=== PATIENT | male | born 1945 | race Caucasian/White ===

== ENCOUNTER → 2017-01-20 | Outpatient (CLI) | payer MEDICARE, OTHER ==
[~2017-01-20] MED LIST: ACHD5005 PO; ACTOS; AMLO10TA82 PO; AMLO5TAB2 PO; AMLODIPINE; ASP81CT PO; CATHETER FLUSH 10 ML SYR IV PRN; CEFD300C3 PO; CEPH500C PO; GABA600T PO; GABA600T2 PO; GABAPENTIN; GBPN300C PO; INSU100I10 SQ; INSU100V6 SQ; L THYROXINE; LEVO100V PO; LEVO112T2 PO; LISI40TA PO; LISINOPRIL; LOVA20TA2 PO; LVT.112T PO; METFORMIN; MTF500T PO; PGLT30T PO; PIOG45TA PO; PREVACID; RANI75TA30 PO; REGADENOSON 0.4 MG/5 ML SYR (LEXISCAN) IV ONE; RNT150T PO; TRAM50TA2 PO
[2017-01-20 08:03] VITALS: BP 155/70
--- NOTE | 2017-01-20 14:33 | STRESS TEST ---
DATE OF SERVICE: 01/20/2017 NUCLEAR MYOVIEW REPORT In summary, the patient was injected with 10.51 mCi of technetium-99 Myoview and the resting images were obtained. The patient received a stress dose of 31.7 mCi of technetium-99 Myoview. The resting and stress images were reviewed and compared in the short axis, horizontal long axis, and vertical long axis views. Review of the images showed diaphragmatic attenuation with fixed defect involving the whole inferior wall and inferoseptum. SSS is 7, SDS 1. No significant reversibility was seen. TID value 1.18. On the gated images, the left ventricle appeared to be normal size with normal contractility. Calculated ejection fraction was 71%. CONCLUSION: 1. Diaphragmatic attenuation affecting the quality of the images, fixed defect involving the inferior wall and inferoseptum with no significant ischemia. 2. Normal left ventricular size with normal contractility. Calculated ejection fraction is 71%. Job ID: [id number] DocumentID: [id number] Dictated Date: 01/20/2017 11:49:55 Aircraft Cleaning Supervisor Date: 01/20/2017 13:41:11 Dictated By: CARMELO JAMISON MD
== END ==
LOC: CARD 06:45
PROVIDERS: ATTEND Internal Medicine
DX: I25.10 Atherosclerotic heart disease of native coronary artery without angina pectoris (principal)
CPT/HCPCS: 78452; 93017

== ENCOUNTER 2017-01-28 11:00 | Outpatient (CLI) | payer MEDICARE, OTHER ==
[~2017-01-28 11:00] MED LIST changes: -CATHETER FLUSH 10 ML SYR IV PRN; -REGADENOSON 0.4 MG/5 ML SYR (LEXISCAN) IV ONE
== END 2017-01-28 11:40 | disposition home or self-care (01) ==
LOC: SLEEP 11:00
PROVIDERS: ATTEND Internal Medicine
DX: G47.33 Obstructive sleep apnea (adult) (pediatric) (principal)

== ENCOUNTER 2017-02-17 12:12 | Outpatient (CLI) | payer MEDICARE, OTHER ==
[~2017-02-17] VITALS: Ht 167.6 cm; Wt 63.6 kg
[2017-02-17] MEDS ORDERED: RANI150T11 PO (12:49)
[2017-02-17] MEDS ORDERED: INSU100V31 IJ (12:49)
[2017-02-17] MEDS ORDERED: LOVA20TA2 PO (12:49)
[2017-02-17] MEDS ORDERED: INSU100V6 SQ (12:49)
[2017-02-17] MEDS ORDERED: LISI40TA PO (12:49)
[2017-02-17] MEDS ORDERED: PIOG45TA18 PO (12:49)
[2017-02-17] MEDS ORDERED: LEVO112T55 PO (12:49)
[2017-02-17] MEDS ORDERED: GABA600T2 PO ×2 (12:49)
[2017-02-17] MEDS ORDERED: METF500T4 PO (12:49)
[2017-02-17] MEDS ORDERED: AMLO10TA2 PO (12:49)
[2017-02-17 12:54] VITALS: BP 151/66
== END 2017-02-17 13:20 | disposition home or self-care (01) ==
LOC: PREOP 12:12
PROVIDERS: ATTEND Podiatrist Foot & Ankle Surgery
DX: Z01.818 Encounter for other preprocedural examination (principal); M20.11 Hallux valgus (acquired), right foot
CPT/HCPCS: 87081

== ENCOUNTER 2017-03-01 21:00 | Outpatient (CLI) | payer MEDICARE, OTHER ==
[~2017-03-01 21:00] MED LIST changes: +AMLO10TA2 PO; +INSU100V31 IJ; +LEVO112T55 PO; +METF500T4 PO; +PIOG45TA18 PO; +RANI150T11 PO
[2017-03-03] MEDS ORDERED: CEPH500C PO ×2 (08:46)
[2017-03-03] MEDS ORDERED: HYDR-3812 PO ×2 (08:46)
== END 2017-03-02 06:28 | disposition home or self-care (01) ==
LOC: SLEEP 21:00
PROVIDERS: ATTEND Internal Medicine
DX: G47.33 Obstructive sleep apnea (adult) (pediatric) (principal); G47.10 Hypersomnia, unspecified; I10 Essential (primary) hypertension
CPT/HCPCS: 95811

== ENCOUNTER 2017-03-03 06:00 | Day surgery (SDC) | payer MEDICARE, OTHER ==
[~2017-03-03] VITALS: Ht 167.6 cm; Wt 63.6 kg
[2017-03-03] MEDS: LACTATED RINGERS 1,000 ML IV PRN ×2 (06:49→08:07)
[2017-03-03] MEDS ORDERED: CATHETER FLUSH 10 ML SYR IV PRN (07:00)
[2017-03-03] MEDS ORDERED: ceFAZolin 1 GM/NS 50 ML IVPB IV ONE ×2 (07:00)
[2017-03-03 07:01] VITALS: BP 131/62
[2017-03-03] MEDS ORDERED: DEXAMETHASONE 10 MG/ML (DECADRON) 1 ML VIAL ONE (07:11)
[2017-03-03] MEDS ORDERED: LIDOCAINE 1% INJ 20 ML (XYLOCAINE) VIAL ONE (07:12)
[2017-03-03] MEDS ORDERED: BUPIVACAINE 0.5% 30 ML (SENSORCAINE) VIAL ONE (07:12)
[2017-03-03] MEDS ORDERED: proPOfol 200 MG/20 ML (DIPRIVAN) VIAL IV ONE (07:24)
[2017-03-03] MEDS ORDERED: LACTATED RINGERS 0 ML IV ONE (07:24)
[2017-03-03] MEDS ORDERED: MIDAZOLAM 2 MG/2 ML (VERSED) VIAL ONE (07:24)
[2017-03-03] MEDS ORDERED: ONDANSETRON 4 MG/2 ML (SDV) Z0FRAN ONE (07:24)
[2017-03-03] MEDS ORDERED: ROCURONIUM 50 MG/5 ML (ZEMURON) VIAL IV ONE (07:24)
[2017-03-03] MEDS ORDERED: LIDOCAINE PF 2% 5 ML (XYLOCAINE) VIAL ONE (07:24)
[2017-03-03] MEDS ORDERED: LIDOCAINE JELLY 2% (XYLOCAINE) 5 ML TUBE ONE ×2 (07:24→08:30)
[2017-03-03] MEDS ORDERED: fentaNYL INJECTION 100 MCG/2 ML AMP ONE (07:24)
--- NOTE | 2017-03-03 07:27 | Progress Note-Pre Operative ---
Pre-Operative Progress Note H&P Reviewed The H&P was reviewed, patient examined and no changes noted. Date Seen by Provider: Mar 03, 2017 Time Seen by Provider: 07:27 Date H&P Reviewed: Mar 03, 2017 Time H&P Reviewed: : Pre-Operative Diagnosis: Hallux Rigidus right SHENG LARES DPM Mar 03, 2017 7:27 am
[2017-03-03] MEDS ORDERED: ISOFLURANE (FORANE) 15 ML/15 MIN INHALATION ONE (08:30)
[2017-03-03] MEDS ORDERED: LACTATED RINGERS 1,000 ML IV SCH (08:43)
--- NOTE | 2017-03-03 08:43 | Progress Note-Post Operative ---
Post-Operative Progess Note Surgeon (s)/Dry Box Operator (s) Surgeon SHENG LARES DPM Dry Box Operator: none Pre-Operative Diagnosis Hallux Rigidus right Post-Operative Diagnosis Same plus Hallux Valgus, right Procedure & Operative Findings Date of Procedure 03/03/17 Procedure Performed/Findings Aris Bunionectomy, right Anesthesia Type General Estimated Blood Loss Estimated blood loss (mL): Minimal Specimens/Packing Specimens Removed None SHENG LARES DPM Mar 03, 2017 8:43 am
[2017-03-03] MEDS ORDERED: HYDROcodone/APAP 5 MG/325 MG (LORTAB) TAB PO PRN (08:45)
[2017-03-03] MEDS ORDERED: ONDANSETRON 4 MG/2 ML (SDV) Z0FRAN IVP PRN ×2 (08:45→09:00)
[2017-03-03] MEDS ORDERED: CEPH500C PO ×2 (08:46)
[2017-03-03] MEDS ORDERED: HYDR-3812 PO ×2 (08:46)
[2017-03-03] MEDS ORDERED: morphine INJ 10 MG/ML 1ML (SYR OR VIAL) IVP PRN (09:00)
[2017-03-03] MEDS ORDERED: MEPERIDINE (DEMEROL) INJ 50 MG/ML IVP PRN (09:00)
[2017-03-03 09:35] VITALS: BP 130/67
[2017-03-03 10:05] VITALS: BP 137/74
[2017-03-03 10:35] VITALS: BP 137/75
--- NOTE | 2017-03-03 11:22 | Physical Therapy Progress Note ---
Therapy Progress Note Patient has established crutches and feels comfortable with use. Spouse present and states she feels he has good use and knowledge of crutches. Reeducation with patient and spouse on stair training with "up with the good leg and down with the bad." No skilled PT indicated at this time. KENNEDY DELONG PT Mar 03, 2017 11:22
--- NOTE | 2017-03-03 14:45 | Diagnostic Imaging Report ---
EXAMINATION: Two views of the right foot. INDICATION: Postoperative evaluation. FINDINGS: There is suggestion of osteotomy and wire internal fixation of the proximal phalanx of the right great toe. There is good alignment at the first MTP joint. There is, however, severe joint space narrowing, subchondral sclerosis, and cyst formation, compatible with osteoarthritis. There is suggestion of osteopenia. Prominent vascular calcifications are also seen. 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 Postoperative changes about the first MTP joint in good alignment. Dictated by: Dictated on workstation # [id number]
--- NOTE | 2017-03-03 17:24 | OPERATIVE REPORT ---
DATE OF SERVICE: 03/03/2017 SURGEON: Aide Lares DPM PREOPERATIVE DIAGNOSIS: Hallux rigidus, right. POSTOPERATIVE DIAGNOSES: 1. Hallux rigidus, right. 2. Hallux abductovalgus, right. WOUND CLASS: Clean. ANESTHESIA: General. HEMOSTASIS: Pneumatic thigh tourniquet at 250 mmHg. INDICATIONS: This 71-year-old male presents with complaint of a painful right great toe joint. Conservative therapy has met with unsatisfactory results and the patient is agreeable to surgical intervention after risks and complications were discussed at length. No guarantees were extended to the patient and he is willing to proceed. DESCRIPTION OF PROCEDURE: The patient was brought back to the operating table and placed in secure supine position. Appropriate timeout was performed. A pneumatic thigh tourniquet was placed on the right lower extremity over several layers of padding. The right foot was then prepped and draped in the normal sterile manner. The right foot was then elevated and allowed to exsanguinate, after which the tourniquet was inflated to 250 mmHg. Attention was then directed to the dorsal aspect of the first metatarsophalangeal joint where a 6 cm longitudinal linear incision was created. The incision was deepened in the same plane with great care to identify and retract all vital neurovascular structures. All the necessary blood vessels were cauterized as encountered. The incision was deepened down to the capsular tissue where a longitudinal capsulotomy was performed. A large dorsal spur was identified to the base of the proximal phalanx and head of the first metatarsal, which was resected sharply. Inspection of the first metatarsal head indicated approximately 50% of the articular cartilage remained, especially to the plantar medial aspect of the cartilage. Inspection of the base of the proximal phalanx had similar deficit of articular cartilage. Utilizing a power sagittal saw and rongeur, the dorsal, medial and lateral spurring to the first metatarsal head as well as the base of the proximal phalanx was resected. The area was further contoured and smoothed with a power bur and power rasp. Utilizing a 1 mm drill, fenestration of the articular cartilage deficit was performed to both the head of the first metatarsal as well as the base of the proximal phalanx. The wound was flushed with copious amounts of normal saline. It was then noted that there was a lateral deviation to the hallux and with correction of the alignment of the hallux, there would be less pressure to the lateral aspect of the articular cartilage of the first metatarsophalangeal joint. An thalia procedure was then performed. Subperiosteal dissection was carried out to the base of the proximal phalanx; after which a wedge of bone was resected with a sagittal saw. The base medial and the lateral cortices held intact. Once the gap was closed, there was good alignment of the right hallux. Two missing persons investigator holes were created at the dorsal medial aspect of the osteotomy, after which a 28-gauge monofilament wire was passed through the missing persons investigator hole securing the osteotomy in a closed position. The wound was flushed with copious amounts of normal saline throughout the procedure. Good alignment of the toe was appreciated as well as fixation at this time. There is no crepitation with passive range of motion of the first metatarsophalangeal joint this time. Closure was then performed in layers. Deep closure was performed with 3-0 Vicryl, superficial with 4-0 Vicryl, skin was closed with 4-0 Prolene in a horizontal mattress type stitch. Postoperative injection consisted of 14 mL of 0.5% Marcaine injectable in a local infusion to the surgical site as well as 10 mg dexamethasone into the right first metatarsophalangeal joint. Postoperative dressing consisted of Betadine soaked Adaptic, sterile 4 x 4, sterile Kerlix all secured with a Coban wrap. The patient tolerated the anesthesia and procedure well and was taken to the recovery area with vital signs stable and vascular status intact to all digits of the right foot. He is to follow up in my office in 10 days' period of time or sooner if necessary. He was given a prescription for Keflex as well as Vicodin. Job ID: [id number] DocumentID: [id number] Dictated Date: 03/03/2017 08:52:57 Animal Rehabilitator Date: 03/03/2017 17:23:49 Dictated By: AIDE LARES DPM
== END 2017-03-03 10:55 | disposition home or self-care (01) ==
LOC: SDC 06:00
PROVIDERS: ATTEND Podiatrist Foot & Ankle Surgery
DX: M20.21 Hallux rigidus, right foot (principal); M20.11 Hallux valgus (acquired), right foot; E03.9 Hypothyroidism, unspecified; E11.42 Type 2 diabetes mellitus with diabetic polyneuropathy; I10 Essential (primary) hypertension; E78.5 Hyperlipidemia, unspecified; K21.9 Gastro-esophageal reflux disease without esophagitis; I25.10 Atherosclerotic heart disease of native coronary artery without angina pectoris; Z86.010 Personal history of colon polyps; G47.33 Obstructive sleep apnea (adult) (pediatric); Z79.4 Long term (current) use of insulin; Z79.899 Other long term (current) drug therapy; Z79.82 Long term (current) use of aspirin
CPT/HCPCS: 73620; 82962

== ENCOUNTER 2018-11-06 17:52 | Observation (INO) | payer MEDICARE, OTHER ==
[~2018-11-06] VITALS: Ht 170.2 cm; Wt 65.8 kg
[~2018-11-06 17:52] MED LIST changes: -AMLO10TA2 PO; +AMLO10TA7 PO; +GBPN600T PO; +METF-397 PO; -METF500T4 PO; -PIOG45TA18 PO; +PIOG45TA65 PO
--- NOTE | 2018-11-06 18:16 | ED Fall/Injury ---
General Chief Complaint: Trauma-Non Activation Stated Complaint: FALL/L SIDE PAIN Nursing Triage Note: Pt to ED in wheelchair. Pt reports falling off the second rung of a ladder. Pt reports "blacking out" and not remembering fall. Pt c/o L sided head, L neck, L shoulder and L hip pain. Pt reports L rib pain worsened upon inspiration. Pt reports fall occured around 1330. Source: patient Exam Limitations: no limitations History of Present Illness Date Seen by Provider: Nov 06, 2018 Time Seen by Provider: 18:14 Initial Comments To ER per private vehicle from home with reports of a fall off of a ladder while working on his garage door. He was up on the second rung of the ladder when he "blacked out" falling off landing on his left side. He complains of pain to the left shoulder left wrist, he did hit the back left side of his head, complains of a headache, complains of some midline posterior neck pain, some lateral left chest pain he was able to get himself up and bear weight but does complain of some pain in the left hip as well. He is not on anticoagulation. He's been feeling fine all day today prior to this episode. Location Injury Occurred: home Occurred: just prior to arrival Severity: moderate Injuries/Pain Location: no injury, neck, chest, back Context: fainted Loss of Consciousness: no loss of consciousness Associated Symptoms (Fall): Chest Pain, Headache, Neck Pain Allergies and Home Medications Allergies Coded Allergies: No Known Drug Allergies (Unverified , 02/17/17) Home Medications Amlodipine Besylate 10 Mg Tablet, 10 MG PO DAILY, (Reported) Gabapentin 600 Mg Tablet, 1,200 MG PO AM, (Reported) Gabapentin 600 Mg Tablet, 1,200 MG PO HS, (Reported) Insulin Glargine,Hum.rec.anlog 100 Unit/1 Ml Vial, 7 UNIT SQ HS, (Reported) Insulin Regular, Human 100 Unit/1 Ml Vial, 5 UNIT IJ EVENING MEAL, (Reported) Levothyroxine Sodium 112 Mcg Tablet, 112 MCG PO DAILY, (Reported) Lisinopril 40 Mg Tablet, 40 MG PO DAILY, (Reported) Lovastatin 20 Mg Tablet, 20 MG PO HS, (Reported) Metformin HCl 500 Mg Tablet, 500 MG PO BID, (Reported) Pioglitazone HCl 45 Mg Tablet, 45 MG PO DAILY, (Reported) Ranitidine HCl 150 Mg Tablet, 150 MG PO BID, (Reported) Patient Home Medication List Home Medication List Reviewed: Yes Review of Systems Review of Systems Constitutional: see HPI Eyes: No Symptoms Reported Ears, Nose, Mouth, Throat: no symptoms reported Respiratory: see HPI, other (pleurodynia) Cardiovascular: chest pain (the chest pain is the very lateral left chest, very tender to palpation and worse with deep breathing or movement.) Genitourinary: no symptoms reported Musculoskeletal: see HPI, joint pain, neck pain Skin: no symptoms reported Psychiatric/Neurological: No Symptoms Reported Past Zdayrbv-Xgrakv-Wsaefw Hx Patient Social History Alcohol Use: Occasionally Uses Recreational Drug Use: No Smoking Status: Never a Smoker Recent Foreign Travel: No Contact w/Someone Who Travel: No Recent Infectious Disease Expo: No Recent Hopitalizations: No Immunizations Up To Date Tetanus Booster (TDap): Less than 5yrs Date of Pneumonia Vaccine: Jan 29, 2016 Date of Influenza Vaccine: Feb 04, 2017 Seasonal Allergies Seasonal Allergies: No Past Medical History Surgeries: Yes (HEART CATH/NO INTERVENTIONS, CATARACTS, LT FOOT, BILAT CARPAL TUNNEL) Thyroidectomy Respiratory: No Cardiac: Yes High Cholesterol, Hypertension Neurological: Yes Neuropathy Reproductive Disorders: No Sexually Transmitted Disease: No HIV/AIDS: No Gastrointestinal: Yes Gastroesophageal Reflux, Polyps Musculoskeletal: Yes Arthritis Endocrine: Yes Diabetes, Insulin dep, Hypothyroidsim Loss of Vision: Bilateral Hearing Impairment: Hard of Hearing, Bilateral Hearing Aide Cancer: Yes (POSS THYROID? DIDN'T FOLLOW UP AFTER SURGERY) What Type of Treatment Did You: Surgical Intervention Psychosocial: No Integumentary: No Blood Disorders: No Adverse Reaction/Blood Tranf: No Family Medical History Arthritis 19 MOTHER, Onset:50's - 60 Cardiovascular disease 19 FATHER, Onset:60 years & older Diabetes mellitus 19 MOTHER, Onset:60 years & older G8 BROTHER, Onset:40's - 50 G8 SISTER, Onset:50's - 60 Kidney disease Myocardial infarction 19 FATHER, Onset:60 years & older Thyroid disease G8 SISTER, Onset:30's - 40 No Family History of: AIDS Abdominal aortic aneurysm Micah's disease Alcoholism Alzheimer's disease Aphasia Asthma Cancer of mouth Cataracts Colon cancer Completed stroke Congenital disease Congenital heart disease Coronary thrombosis Cystic fibrosis Deafness or hearing loss Dementia Drug abuse Dysphasia Fibrocystic disease of breast Gastroenteritis Glaucoma Headache disorder Hypercholesterolemia Hypertension Infertility Neoplasm Not obtainable due to adoption Osteoporosis Parkinson's disease Prostate cancer Psychosocial problem Respiratory disorder Seizure disorder Severe allergy Tuberculosis Visual disorder No Pertinent Family Hx Physical Exam Vital Signs Vital Signs - First Documented 11/06/18 17:55 Temp 97.0 Pulse 87 Resp 15 B/P (MAP) 145/77 (99) Pulse Ox 97 O2 Delivery Room Air Capillary Refill : Less Than 3 Seconds Height, Weight, BMI Height: 5'7.00" Weight: 140lbs. 4.0oz. [id number]; 22.6 BMI Method:Stated General Appearance: WD/WN, mild distress HEENT: PERRL/EOMI, normal ENT inspection Neck: non-tender, full range of motion Respiratory: no respiratory distress, no accessory muscle use, other (Left chest wall is very tender to palpation there is no ecchymosis or abrasion) Gastrointestinal: normal bowel sounds, non tender, soft Neurologic/Psychiatric: alert, normal mood/affect Skin: normal color, warm/dry Romana Coma Score Best Eye Response: (4) Open Spontaneously Best Verbal Response: (5) Oriented Best Motor Response: (6) Obeys Commands [place] Total: 15 Progress/Results/Core Measures Results/Orders Lab Results Laboratory Tests Test 11/06/18 18:15 Range/Units White Blood Count 18.0 H 4.3-11.0 10^3/uL Red Blood Count 4.42 4.35-5.85 10^6/uL Hemoglobin 13.5 13.3-17.7 G/DL Hematocrit 40 40-54 % Mean Corpuscular Volume 91 80-99 FL Mean Corpuscular Hemoglobin 31 25-34 PG Mean Corpuscular Hemoglobin Concent 34 32-36 G/DL Red Cell Distribution Width 15.8 H 10.0-14.5 % Platelet Count 320 130-400 10^3/uL Mean Platelet Volume 9.7 7.4-10.4 FL Neutrophils (%) (Auto) 88 H 42-75 % Lymphocytes (%) (Auto) 6 L 12-44 % Monocytes (%) (Auto) 6 0-12 % Eosinophils (%) (Auto) 0 0-10 % Basophils (%) (Auto) 0 0-10 % Neutrophils # (Auto) 15.8 H 1.8-7.8 X 10^3 Lymphocytes # (Auto) 1.1 1.0-4.0 X 10^3 Monocytes # (Auto) 1.1 H 0.0-1.0 X 10^3 Eosinophils # (Auto) 0.0 0.0-0.3 10^3/uL Basophils # (Auto) 0.0 0.0-0.1 10^3/uL Neutrophils % (Manual) 84 % Lymphocytes % (Manual) 5 % Monocytes % (Manual) 6 % Eosinophils % (Manual) 0 % Basophils % (Manual) 0 % Band Neutrophils 5 % Anisocytosis SLIGHT Prothrombin Time 13.7 12.2-14.7 SEC INR Comment 1.0 0.8-1.4 Sodium Level 134 L 135-145 MMOL/L Potassium Level 5.2 H 3.6-5.0 MMOL/L Chloride Level 104 98-107 MMOL/L Carbon Dioxide Level 23 21-32 MMOL/L Anion Gap 7 5-14 MMOL/L Blood Urea Nitrogen 29 H 7-18 MG/DL Creatinine 1.54 H 0.60-1.30 MG/DL Estimat Glomerular Filtration Rate 44 BUN/Creatinine Ratio 19 Glucose Level 210 H 70-105 MG/DL Calcium Level 9.8 8.5-10.1 MG/DL Corrected Calcium 9.7 8.5-10.1 MG/DL Total Bilirubin 0.5 0.1-1.0 MG/DL Aspartate Amino Transf (AST/SGOT) 29 5-34 U/L Alanine Aminotransferase (ALT/SGPT) 25 0-55 U/L Alkaline Phosphatase 90 40-136 U/L Total Protein 6.8 6.4-8.2 GM/DL Albumin 4.1 3.2-4.5 GM/DL My Orders Orders - ALEJO HUYNH APRN Cbc With Automated Diff (11/06/18 18:13) Comprehensive Metabolic Panel (11/06/18 18:13) Protime With Inr (11/06/18 18:13) Ct Head/Cervical Spine Wo (11/06/18 18:13) Ct Chest/Abdomen/Pelvis W (11/06/18 18:13) Wrist, Left, 3 Views Or More (11/06/18 18:13) Shoulder, Left, 3 Views (11/06/18 18:13) Fentanyl Injection (Sublimaze Injection (11/06/18 18:30) Manual Differential (11/06/18 18:15) Lactated Ringers (Lr 1000 Ml Iv Solution (11/06/18 19:00) Iohexol Injection (Omnipaque 350 Mg/Ml 1 (11/06/18 19:00) Received Contrast (Hold Metformin- Contr (11/06/18 19:00) Sodium Chloride Flush (Catheter Flush Sy (11/06/18 19:00) Ns (Ivpb) (Sodium Chloride 0.9% Ivpb Bag (11/06/18 19:00) Fentanyl Injection (Sublimaze Injection (11/06/18 19:30) Medications Given in ED Vital Signs/I&O 11/06/18 11/06/18 17:55 18:29 Temp 97.0 Pulse 87 80 Resp 15 16 B/P (MAP) 145/77 (99) 121/58 (79) Pulse Ox 97 94 O2 Delivery Room Air Room Air Blood Pressure Mean: 99 Departure Communication (Admissions) Time/Spoke to Admitting Phy: 19:[address] White, recommends observation admission, patient begrudgingly agrees Markedly irregular appearance of the scaphoid bone. There is suggestion of lucency through the mid portion of the scaphoid bone, possibly representing a fracture. There is also suggestion of widening of the scapholunate joint, possibly reflecting ligamentous injury. Constellation of findings may be related to chronic degenerative change; however, given history of trauma, acute fracture is not excluded. Sclerotic focus in the scaphoid bone is of indeterminate etiology or clinical significance. This does not have an aggressive appearance and may reflect a benign bone island or sequela of degenerative change. Dictated on workstation # [id number] Dict: 11/06/181900 Trans: 11/06/181907 [id number] Interpreted by: JACINTA BERNARD DO Electronically signed by: NAME: KELSI ANTONY [facility] REC#: [id number] PT STATUS: REG ER : 1945 PHYSICIAN: ALEJO HUYNH APRN ADMIT DATE: 11/06/18/ER Draft Date of Exam:11/06/18 CT CHEST/ABDOMEN/PELVIS W PROCEDURE: CT chest, abdomen, and pelvis with contrast. TECHNIQUE: Multiple contiguous axial images were obtained through the chest, abdomen, and pelvis after the administration of intravenous contrast. Auto Exposure Controls were utilized during the CT exam to meet ALARA standards for radiation dose reduction. INDICATION: Fell, left upper abdomen pain. FINDINGS: The images through the thorax show that there is a displaced fracture of the lateral aspect of the left fourth rib. The fracture fragments are displaced by half the width of the rib shaft. There are also nondisplaced fractures of the lateral aspects of the left fifth and sixth ribs. There is a vague area of increased density in the left lung base. This may be secondary to atelectasis/infiltrate. The possibility that this is related to a pulmonary contusion should also be considered. There is no sign of a pneumothorax on the left. There is mild atelectasis/infiltrate in the right lung base. The right lung is otherwise generally clear. The previous CT chest exam of 08/02/2015 suggested a small spiculated subpleural density along the periphery of the right upper lobe. That finding is difficult to appreciate on this exam. The calcified pleural based nodule in the right lung base seen previously is again evident and essentially no different. The heart size is within normal limits. There are coronary artery calcifications evident. The aorta is not abnormally dilated and there is no sign of a dissection. The pulmonary arteries were not well opacified and consequently difficult to assess for a pulmonary embolus. There is no obvious pulmonary embolus present. There is no mediastinal or hilar adenopathy. The thyroid gland was not well visualized. The images through the abdomen and pelvis show that the liver, spleen, pancreas, adrenals, gallbladder, kidneys, aorta and inferior vena cava are unremarkable for an acute abnormality. There is fatty infiltration of the pancreas. There is a 5.2 cm hiatal hernia. There is diverticulosis of the sigmoid and descending colon but there is no sign of acute diverticulitis. The urinary bladder and prostate gland are grossly unremarkable. The appendix was not well-visualized but there are no indirect signs of acute appendicitis. The bone windows through the pelvis show no sign of a fracture. The reconstructed parasagittal images fail to show any evidence for an acute bony abnormality of the thoracic or lumbar vertebra. There is severe degenerative disc and bony disease at L2-3. IMPRESSION: 1. There is a displaced fracture at the lateral aspect of the left fourth rib and nondisplaced fractures of the left fifth and sixth ribs. The abnormal density of the left lung base may be secondary to atelectasis/infiltrate alone. The possibility that there is a pulmonary contusion in this area should also be considered. There is no pneumothorax identified. 2. There is no acute cardiopulmonary abnormality noted otherwise. 3. There is no acute abnormality of the abdomen and pelvis. 4. These results were discussed with Dr. Alejo Huynh. Dictated on workstation # [id number] Dict: 11/06/181917 Trans: 11/06/181935 [facility] [id number] Interpreted by: RUDY GONZALES MD Electronically signed by: Impression Primary Impression: Left rib fracture Additional Impression: Pulmonary contusion Disposition: ADMITTED INPATIENT Condition: Stable Admissions Decision to Admit Reason: Admit from ER (General) Decision to Admit/Date: Nov 06, 2018 Time/Decision to Admit Time: 19:49 Departure-Patient Inst. Referrals: YANELY STORM DO (PCP/Family) Primary Care Physician ALEJO HUYNH APRN Nov 06, 2018 18:16
--- NOTE | 2018-11-06 18:25 | NUR ---
pt assissted to cart from wheelchair with assist x2. pt placed in gown. Addendum: 11/06/18 at 1831 by CARINA pt informed of approximate wait time for labs.
[2018-11-06 18:27] LABS: BASOPHILS % (AUTO) 0 % (0-10); EOSINOPHILS % (AUTO) 0 % (0-10); HEMATOCRIT 40 % (40-54); HEMOGLOBIN 13.5 G/DL (13.3-17.7); LYMPHOCYTES # (AUTO) 1.1 X 10^3 (1.0-4.0); LYMPHOCYTES % (AUTO) 6 % (12-44); MEAN CORPUSCULAR HEMOGLOBIN 31 PG (25-34); MEAN CORPUSCULAR HGB CONC 34 G/DL (32-36); MEAN CORPUSCULAR VOLUME 91 FL (80-99); MEAN PLATELET VOLUME 9.7 FL (7.4-10.4); MONOCYTES # (AUTO) 1.1 X 10^3 (0.0-1.0); MONOCYTES % (AUTO) 6 % (0-12); NEUTROPHILS # (AUTO) 15.8 X 10^3 (1.8-7.8); NEUTROPHILS % (AUTO) 88 % (42-75); PLATELET COUNT 320 10^3/uL (130-400); RED CELL DISTRIBUTION WIDTH 15.8 % (10.0-14.5)
[2018-11-06] MEDS ORDERED: fentaNYL INJECTION 100 MCG/2 ML AMP IVP ONE ×2 (18:30→19:30)
[2018-11-06 18:37] LABS: PROTHROMBIN TIME PATIENT 13.7 SEC (12.2-14.7)
[2018-11-06 18:45] LABS: ALBUMIN 4.1 GM/DL (3.2-4.5); BILIRUBIN,TOTAL 0.5 MG/DL (0.1-1.0); CALCIUM 9.8 MG/DL (8.5-10.1); CREATININE SERUM 1.54 MG/DL (0.60-1.30); POTASSIUM 5.2 MMOL/L (3.6-5.0); TOTAL PROTEIN 6.8 GM/DL (6.4-8.2)
[2018-11-06 18:54] LABS: BAND NEUTROPHILS 5 %; BASOPHILS % (MANUAL) 0 %; EOSINOPHILS % (MANUAL) 0 %; LYMPHOCYTES % (MANUAL) 5 %; MONOCYTES % (MANUAL) 6 %; NEUTROPHILS % (MANUAL) 84 %
[2018-11-06 18:55] LABS: ANISOCYTOSIS SLIGHT
[2018-11-06] MEDS ORDERED: LACTATED RINGERS 1,000 ML IV SCH ×2 (19:00→21:30)
[2018-11-06] MEDS ORDERED: IOHEXOL 350 MG/ML 100 ML (OMNIPAQUE 350) VIAL IV ONE (19:00)
[2018-11-06] MEDS ORDERED: CATHETER FLUSH 10 ML SYR IV PRN (19:00)
[2018-11-06] MEDS ORDERED: HOLD METFORMIN - RECEIVED CONTRAST 20 ML VIAL IV SCH (19:00)
[2018-11-06] MEDS ORDERED: NS 100 ML (IVPB) BAG IV ONE (19:00)
--- NOTE | 2018-11-06 19:06 | Diagnostic Imaging Report ---
Examination: Left shoulder, 3 views Indication: Left shoulder pain. Comparison: None available. Findings: No fracture or acute osseous abnormality. Alignment is maintained. Humeral head is well-seated in the glenohumeral joint. No evidence of acromioclavicular joint separation. Surgical clips are demonstrated in the inferior neck soft tissues. No radiopaque foreign body. IMPRESSION: No evidence of acute fracture or dislocation. Dictated by: Dictated on workstation # [id number]
--- NOTE | 2018-11-06 19:09 | Diagnostic Imaging Report ---
EXAMINATION: Left wrist, three views. INDICATION: Left wrist pain after fall. COMPARISON: None available. FINDINGS: There is generalized osteopenia of the visualized bones, which limits detailed evaluation. The scaphoid demonstrates a markedly irregular appearance, with lucency noted in the distal aspect. There is a rounded focus of increased sclerosis in the scaphoid bone. There is marked radiocarpal joint space narrowing. There is suggestion of widening of the scapholunate joint. No displaced fracture is appreciated. Vascular calcifications are noted. No radiopaque foreign body. IMPRESSION: Markedly irregular appearance of the scaphoid bone. There is suggestion of lucency through the mid portion of the scaphoid bone, possibly representing a fracture. There is also suggestion of widening of the scapholunate joint, possibly reflecting ligamentous injury. Constellation of findings may be related to chronic degenerative change; however, given history of trauma, acute fracture is not excluded. Sclerotic focus in the scaphoid bone is of indeterminate etiology or clinical significance. This does not have an aggressive appearance and may reflect a benign bone island or sequela of degenerative change. Dictated by: Dictated on workstation # [id number]
--- NOTE | 2018-11-06 19:15 | NUR ---
C-COLLAR REMOVED BY ALIYA RENTERIA
--- NOTE | 2018-11-06 19:20 | Diagnostic Imaging Report ---
PROCEDURE: CT head and CT cervical spine without contrast. TECHNIQUE: Multiple contiguous axial images were obtained through the brain and cervical spine without the use of intravenous contrast. Sagittal and coronal reformations through the cervical spine were then performed. Auto Exposure Controls were utilized during the CT exam to meet ALARA standards for radiation dose reduction. INDICATION: Fell, headache. COMPARISON: There are no prior studies available for comparison. CT OF THE HEAD: There is no mass, shift of the midline, or hemorrhage to suggest an acute intracranial abnormality. There are dense calcifications in the basal ganglia bilaterally and in the dentate nuclei bilaterally. These are nonspecific but felt to be benign. The ventricles are not abnormally dilated. There is mild cortical atrophy present. The degree of atrophy is consistent with the patient's age. The bone windows show no sign of a fracture or of a destructive lesion. The orbits are symmetrical and within normal limits. The sinuses are generally clear. IMPRESSION: 1. There is no evidence for an acute intracranial abnormality. 2. If clinical concern regarding an acute abnormality persists, then MRI would be recommended for further study. 3. The dense calcifications in the basal ganglia and dentate nuclei bilaterally are nonspecific but most likely benign. CT CERVICAL SPINE: The reconstructed sagittal images show degenerative disc and bony disease throughout the cervical spine. There is no evidence for a high-grade central stenosis. However, there does appear to be fairly severe narrowing of the neural foramen on the right at C3-C4 due to bony overgrowth. There is no fracture or acute bony abnormality appreciated. There is no sign of retropharyngeal edema. The thyroid gland was not well visualized. The lung apices are clear. IMPRESSION: 1. There is no evidence for an acute bony abnormality. 2. There is degenerative disc and bony disease throughout the cervical spine, and there does appear to be fairly severe narrowing of the neural foramen on the right at C3-C4. Dictated by: Dictated on workstation # [id number]
--- NOTE | 2018-11-06 19:37 | Diagnostic Imaging Report ---
PROCEDURE: CT chest, abdomen, and pelvis with contrast. TECHNIQUE: Multiple contiguous axial images were obtained through the chest, abdomen, and pelvis after the administration of intravenous contrast. Auto Exposure Controls were utilized during the CT exam to meet ALARA standards for radiation dose reduction. INDICATION: Fell, left upper abdomen pain. FINDINGS: The images through the thorax show that there is a displaced fracture of the lateral aspect of the left fourth rib. The fracture fragments are displaced by half the width of the rib shaft. There are also nondisplaced fractures of the lateral aspects of the left fifth and sixth ribs. There is a vague area of increased density in the left lung base. This may be secondary to atelectasis/infiltrate. The possibility that this is related to a pulmonary contusion should also be considered. There is no sign of a pneumothorax on the left. There is mild atelectasis/infiltrate in the right lung base. The right lung is otherwise generally clear. The previous CT chest exam of 08/02/2015 suggested a small spiculated subpleural density along the periphery of the right upper lobe. That finding is difficult to appreciate on this exam. The calcified pleural based nodule in the right lung base seen previously is again evident and essentially no different. The heart size is within normal limits. There are coronary artery calcifications evident. The aorta is not abnormally dilated and there is no sign of a dissection. The pulmonary arteries were not well opacified and consequently difficult to assess for a pulmonary embolus. There is no obvious pulmonary embolus present. There is no mediastinal or hilar adenopathy. The thyroid gland was not well visualized. The images through the abdomen and pelvis show that the liver, spleen, pancreas, adrenals, gallbladder, kidneys, aorta and inferior vena cava are unremarkable for an acute abnormality. There is fatty infiltration of the pancreas. There is a 5.2 cm hiatal hernia. There is diverticulosis of the sigmoid and descending colon but there is no sign of acute diverticulitis. The urinary bladder and prostate gland are grossly unremarkable. The appendix was not well-visualized but there are no indirect signs of acute appendicitis. The bone windows through the pelvis show no sign of a fracture. The reconstructed parasagittal images fail to show any evidence for an acute bony abnormality of the thoracic or lumbar vertebra. There is severe degenerative disc and bony disease at L2-3. IMPRESSION: 1. There is a displaced fracture at the lateral aspect of the left fourth rib and nondisplaced fractures of the left fifth and sixth ribs. The abnormal density of the left lung base may be secondary to atelectasis/infiltrate alone. The possibility that there is a pulmonary contusion in this area should also be considered. There is no pneumothorax identified. 2. There is no acute cardiopulmonary abnormality noted otherwise. 3. There is no acute abnormality of the abdomen and pelvis. 4. These results were discussed with Gopi Huynh APRN. Dictated by: Dictated on workstation # [id number]
--- NOTE | 2018-11-06 20:10 | NUR ---
DR VAZQUEZ HERE SEEING PATIENT.
--- NOTE | 2018-11-06 20:18 | NUR ---
WAITING ON BED FOR RM [id number]
--- NOTE | 2018-11-06 20:21 | Diagnostic Imaging Report ---
EXAMINATION: Right hand, 2 views. INDICATION: Right hand pain after fall. COMPARISON: None available. FINDINGS: There is generalized osteopenia of the visualized bones, which limits detailed evaluation. No fracture or acute osseous abnormality is identified. There is marked degenerative change of the radiocarpal joint and irregular appearance of the scaphoid bone, likely on the basis of degenerative change. No periosteal reaction is appreciated. Vascular calcifications are noted. Soft tissues are otherwise unremarkable. IMPRESSION: Limited exam. Marked degenerative change of the radiocarpal joint, without evidence of acute fracture or dislocation. Dictated by: Dictated on workstation # [id number]
--- NOTE | 2018-11-06 20:28 | History & Physical-Surgical ---
History of Present Illness History of Present Illness Reason for visit/HPI Pt is a modified Trauma Activation, 73 yo male who fell off ladder. HPI per ED: To ER per private vehicle from home with reports of a fall off of a ladder while working on his garage door. He was up on the second rung of the ladder when he "blacked out" falling off landing on his left side. He complains of pain to the left shoulder left wrist, he did hit the back left side of his head, complains of a headache, complains of some midline posterior neck pain, some lateral left chest pain he was able to get himself up and bear weight but does complain of some pain in the left hip as well. He is not on anticoagulation. He's been feeling fine all day today prior to this episode. Location Injury Occurred: home Occurred: just prior to arrival Severity: moderate Injuries/Pain Location: no injury, neck, chest, back Context: fainted Loss of Consciousness: no loss of consciousness Associated Symptoms (Fall): Chest Pain, Headache, Neck Pain Pt states it hurts to take deep breaths and radiates into his back. Denies SOB. Headache is minimal. Date of Admission Nov 06, 2018 at 19:40 Time Seen by a Provider: 17:59 I consulted on this patient on 11/06/18 20:22 Attending Physician Hiral Vazquez DO Admitting Physician Chester Freed DO Consult Allergies and Home Medications Allergies Coded Allergies: No Known Drug Allergies (Unverified , 02/17/17) Home Medications Amlodipine Besylate 10 Mg Tablet, 10 MG PO DAILY, (Reported) Cephalexin 500 Mg Capsule, 1 CAP PO TID Prescribed by: SHENG LARES on 03/03/17 0846 Gabapentin 600 Mg Tablet, 600 MG PO AM, (Reported) Gabapentin 600 Mg Tablet, 1,200 MG PO HS, (Reported) Hydrocodone Bit/Acetaminophen 1 Each Tablet, 1-2 TAB PO Q4-6HR PRN for PAIN PRN PAIN Prescribed by: SHENG LARES on 03/03/17 0846 Insulin Glargine,Hum.rec.anlog 100 Unit/1 Ml Vial, 7 UNIT SQ HS, (Reported) Insulin Regular, Human 100 Unit/1 Ml Vial, 5 UNIT IJ EVENING MEAL, (Reported) Levothyroxine Sodium 112 Mcg Tablet, 112 MCG PO DAILY, (Reported) Lisinopril 40 Mg Tablet, 40 MG PO DAILY, (Reported) Lovastatin 20 Mg Tablet, 20 MG PO HS, (Reported) Metformin HCl 500 Mg Tablet, 500 MG PO BID, (Reported) Pioglitazone HCl 45 Mg Tablet, 45 MG PO DAILY, (Reported) Ranitidine HCl 150 Mg Tablet, 150 MG PO BID, (Reported) Patient Home Medication List Home Medication List Reviewed: Yes Past Rnwjtbv-Dkhetj-Bfbajl Hx Patient Social History Alcohol Use: Occasionally Uses Recreational Drug Use: No Smoking Status: Never a Smoker Recent Foreign Travel: No Contact w/Someone Who Travel: No Recent Infectious Disease Expo: No Recent Hopitalizations: No Immunizations Up To Date Tetanus Booster (TDap): Less than 5yrs Date of Pneumonia Vaccine: Jan 29, 2016 Date of Influenza Vaccine: Feb 04, 2017 Seasonal Allergies Seasonal Allergies: No Surgeries History of Surgeries: Yes (HEART CATH/NO INTERVENTIONS, CATARACTS, LT FOOT, BI LAT CARPAL TUNNEL) Surgeries: Thyroidectomy Respiratory History of Respiratory Disorde: No Cardiovascular History of Cardiac Disorders: Yes Cardiac Disorders: High Cholesterol, Hypertension Neurological History of Neurological Disord: Yes Neurological Disorders: Neuropathy Reproductive System Hx Reproductive Disorders: No Sexually Transmitted Disease: No HIV/AIDS: No Gastrointestinal History of Gastrointestinal Di: Yes Gastrointestinal Disorders: Gastroesophageal Reflux, Polyps Musculoskeletal History of Musculoskeletal Dis: Yes Musculoskeletal Disorders: Arthritis Endocrine History of Endocrine Disorders: Yes Endocrine Disorders: Diabetes, Insulin dep, Hypothyroidsim HEENT Loss of Vision: Bilateral Hearing Impairment: Hard of Hearing, Bilateral Hearing Aide Cancer History of Cancer: Yes (POSS THYROID? DIDN'T FOLLOW UP AFTER SURGERY) Psychosocial History of Psychiatric Problem: No Integumentary History of Skin or Integumenta: No Blood Transfusions History of Blood Disorders: No Adverse Reaction to a Blood Tr: No Family Medical History Significant Family History: CAD Over 55 Years Old, Diabetes Family Medial History: Arthritis 19 MOTHER, Onset:50's - 60 Cardiovascular disease 19 FATHER, Onset:60 years & older Diabetes mellitus 19 MOTHER, Onset:60 years & older G8 BROTHER, Onset:40's - 50 G8 SISTER, Onset:50's - 60 Kidney disease Myocardial infarction 19 FATHER, Onset:60 years & older Thyroid disease G8 SISTER, Onset:30's - 40 No Family History of: AIDS Abdominal aortic aneurysm Tate's disease Alcoholism Alzheimer's disease Aphasia Asthma Cancer of mouth Cataracts Colon cancer Completed stroke Congenital disease Congenital heart disease Coronary thrombosis Cystic fibrosis Deafness or hearing loss Dementia Drug abuse Dysphasia Fibrocystic disease of breast Gastroenteritis Glaucoma Headache disorder Hypercholesterolemia Hypertension Infertility Neoplasm Not obtainable due to adoption Osteoporosis Parkinson's disease Prostate cancer Psychosocial problem Respiratory disorder Seizure disorder Severe allergy Tuberculosis Visual disorder Review of Systems Constitutional: No chills, No diaphoresis, No weakness EENTM: No blurred vision, No double vision, No mouth pain, No mouth swelling, No epistaxis Respiratory: No cough, No dyspnea on exertion, No hemoptysis Cardiovascular: chest pain; No edema, No palpitations Gastrointestinal: No abdominal pain, No nausea, No vomiting Genitourinary: No dysuria, No frequency, No hematuria Musculoskeletal: back pain, joint pain, joint swelling, muscle stiffness, neck pain Skin: No change in color, No change in hair/nails Psychiatric/Neurological: Denies Anxiety, Denies Depressed, Denies Seizure, Denies Tingling Pt denies any history of abnormal bleeding or bruising Physical Exam Vital Signs Vital Signs - First Documented 11/06/18 17:55 Temp 97.0 Pulse 87 Resp 15 B/P (MAP) 145/77 (99) Pulse Ox 97 O2 Delivery Room Air Capillary Refill : Less Than 3 Seconds Height, Weight, BMI Height: 5'7.00" Weight: 140lbs. 4.0oz. 63.589763hd; 22.6 BMI Method:Stated General Appearance: WD/WN, Mild Distress Eyes: Bilateral Eye PERRL, Bilateral Eye EOMI HEENT: Pharynx Normal, Moist Mucous Membranes; No Pale Conjunctivae (L), No Pale Conjunctivae (R) Neck: Normal Inspection, Supple Respiratory: Chest Non Tender, Lungs Clear, Normal Breath Sounds, No Accessory Muscle Use, No Respiratory Distress Cardiovascular: Regular Rate, Rhythm, No Murmur Gastrointestinal: Normal Bowel Sounds, No Organomegaly, No Pulsatile Mass, Non Tender, Soft Back: No Vertebral Tenderness, CVA Tenderness (L), Decreased Range of Motion Extremity: Normal Capillary Refill, Normal Inspection, Normal Range of Motion, Non Tender, No Calf Tenderness, No Pedal Edema Neurologic/Psychiatric: Alert, Oriented x3, No Motor/Sensory Deficits, Normal Mood/Affect, airplane electrical repairer II-XII Norm as Tested Skin: Normal Color, Warm/Dry Lymphatic: No Adenopathy (neck, axilla or groin) Data Review Labs Laboratory Tests 11/06/18 18:15: White Blood Count 18.0H, Red Blood Count 4.42, Hemoglobin 13.5, Hematocrit 40, Mean Corpuscular Volume 91, Mean Corpuscular Hemoglobin 31, Mean Corpuscular Hemoglobin Concent 34, Red Cell Distribution Width 15.8H, Platelet Count 320, Mean Platelet Volume 9.7, Neutrophils (%) (Auto) 88H, Lymphocytes (%) (Auto) 6L, Monocytes (%) (Auto) 6, Eosinophils (%) (Auto) 0, Basophils (%) (Auto) 0, Neutrophils # (Auto) 15.8H, Lymphocytes # (Auto) 1.1, Monocytes # (Auto) 1.1H, Eosinophils # (Auto) 0.0, Basophils # (Auto) 0.0, Neutrophils % (Manual) 84, Lymphocytes % (Manual) 5, Monocytes % (Manual) 6, Eosinophils % (Manual) 0, Basophils % (Manual) 0, Band Neutrophils 5, Anisocytosis SLIGHT, Prothrombin T mahesh 13.7, INR Comment 1.0, Sodium Level 134L, Potassium Level 5.2H, Chloride Level 104, Carbon Dioxide Level 23, Anion Gap 7, Blood Urea Nitrogen 29H, Creatinine 1.54H, Estimat Glomerular Filtration Rate 44, BUN/Creatinine Ratio 19, Glucose Level 210H, Calcium Level 9.8, Corrected Calcium 9.7, Total Bilirubin 0.5, Aspartate Amino Transf (AST/SGOT) 29, Alanine Aminotransferase (ALT/SGPT) 25, Alkaline Phosphatase 90, Total Protein 6.8, Albumin 4.1 Assessment/Plan Assessment/Plan Admission Diagonsis Trauma - Fall from Ladder Rib fracture Left 4,5,6 Pulmonary Contusion Admission Status: Observation Assessment/Plan Trauma - Fall from Ladder Rib fracture Left 4,5,6 Pulmonary Contusion Plan is to admit for observation with restricted fluids, pain control and anti- emetics if needed. Pt encouraged to take deep breaths and use IS. Will check O2 periodically and place NC if it drops below 92%. If he has any SOB will repeat CXR in am. All questions answered to his and his family's satisfaction. HIRAL VAZQUEZ DO Nov 06, 2018 20:27
--- NOTE | 2018-11-06 20:35 | NUR ---
KELSI ANTONY admitted to room 416-1, with an admitting diagnosis of LEFT PULMONARY CONTUSION, LEFT RIB FRACTURE, on 11/06/18 from ED via WHEELCHAIR, accompanied by FAMILY AND ED STAFF.KELSI ANTONY introduced to surroundings, call light, bed controls, phone, TV, temperature control, lights, meal times, smoking policy, visitor policy, side rail policy, bathrooms and showers. Patient Rights given to patient in the handbook. KELSI ANTONY verbalizes understanding that [facility] is not responsible for the loss or damage to any personal effects or valuables that are kept in the patients posession during their hospitalization. Patient and/or family were informed about the Rapid Response Team and its purpose.
[2018-11-06 20:39] VITALS: BP 149/66
[2018-11-06] MEDS ORDERED: oxyCODONE/APAP 5/325MG (PERCOCET 5) TABLET PO PRN (21:30)
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
[2018-11-06] MEDS: fentaNYL INJECTION 100 MCG/2 ML AMP IV PRN (22:06)
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
--- NOTE | 2018-11-06 22:25 | NUR ---
PATIENT VOMITED COFFEE GROUND LIKE EMESIS. NOTIFIED DR. VAZQUEZ AT 5244. NO NEW ORDERS AT THIS TIME
--- NOTE | 2018-11-06 23:29 | NUR ---
PT VOMITING COFFEE GROUND EMESIS AGAIN, PT FAMILY CONCERNED. THIS NURSE TALKED TO DR. VAZQUEZ AT 5333. DR CESAR MEYER FOR THE NAUSEA/VOMITING.
[2018-11-06] MEDS ORDERED: RT-ALBUTEROL/IPRATROPIUM 3 ML (DUONEB) VIAL INH PRN (23:30)
[2018-11-07] VITALS: BP 126/59
[2018-11-07] MEDS ORDERED: ONDANSETRON 4 MG/2 ML (SDV) Z0FRAN IVP PRN (00:15)
[2018-11-07 04:00] VITALS: BP 137/64
[2018-11-07 05:06] LABS: BASOPHILS % (AUTO) 0 % (0-10); EOSINOPHILS % (AUTO) 0 % (0-10); HEMATOCRIT 36 % (40-54); HEMOGLOBIN 11.9 G/DL (13.3-17.7); LYMPHOCYTES # (AUTO) 1.5 X 10^3 (1.0-4.0); LYMPHOCYTES % (AUTO) 11 % (12-44); MEAN CORPUSCULAR HEMOGLOBIN 30 PG (25-34); MEAN CORPUSCULAR HGB CONC 33 G/DL (32-36); MEAN CORPUSCULAR VOLUME 91 FL (80-99); MONOCYTES # (AUTO) 1.3 X 10^3 (0.0-1.0); MONOCYTES % (AUTO) 10 % (0-12); NEUTROPHILS # (AUTO) 10.2 X 10^3 (1.8-7.8); NEUTROPHILS % (AUTO) 79 % (42-75); PLATELET COUNT 275 10^3/uL (130-400)
[2018-11-07 05:25] LABS: CALCIUM 9.1 MG/DL (8.5-10.1); CREATININE SERUM 1.19 MG/DL (0.60-1.30); POTASSIUM 4.7 MMOL/L (3.6-5.0)
[2018-11-07] MEDS: fentaNYL INJECTION 100 MCG/2 ML AMP IV PRN (07:49)
[2018-11-07 08:00] VITALS: BP 168/73
[2018-11-07] MEDS ORDERED: RT-ALBUTEROL/IPRATROPIUM 3 ML (DUONEB) VIAL INH SCH (08:00)
[2018-11-07] MEDS ORDERED: DOCUSATE SODIUM 100 MG (COLACE) CAP PO SCH (09:00)
--- NOTE | 2018-11-07 09:35 | Diagnostic Imaging Report ---
Indication: Fall. Findings: The heart size is normal. There is some left basilar atelectasis and/or pneumonitis and small left pleural effusion. There is no pneumothorax. The mediastinum is unremarkable. Impression: Left basilar atelectasis and/or pneumonitis and small left pleural effusion. Dictated by: Dictated on workstation # [id number]
--- NOTE | 2018-11-07 10:25 | Progress Note - Surgery ---
Subjective Time Seen by a Provider: 09:01 Subjective/Events-last exam Pt seen and examined, events of last night noted (nurse reported possible coffee ground emesis). Pt is finally not nauseous, is eating a breakfast burrito his daughter brought. Denies trouble breathing, but it does hurt to take a deep breath. Review of Systems General: No Chills, No Night Sweats Pulmonary: No Dyspnea, No Cough Gastrointestinal: Nausea, Vomiting Objective Exam Vital Signs Date Time Temp Pulse Resp B/P (MAP) Pulse Ox O2 Delivery O2 Flow Rate FiO2 11/07/18 08:00 98.1 108 18 168/73 (104) 92 Room Air 11/07/18 08:00 93 Room Air 11/07/18 07:40 94 Room Air 11/07/18 04:00 99.0 99 16 137/64 (88) 94 Room Air 11/07/18 02:33 93 Room Air 11/07/18 01:00 81 11/07/18 00:00 97.0 83 18 126/59 (81) 90 Room Air 11/06/18 22:54 85 11/06/18 22:50 93 Room Air 11/06/18 22:50 84 93 21 11/06/18 20:50 Room Air 11/06/18 20:39 97.2 88 22 149/66 94 Room Air 11/06/18 20:16 97.9 90 16 146/75 (98) 96 Room Air 11/06/18 18:29 80 16 121/58 (79) 94 Room Air 11/06/18 17:55 97.0 87 15 145/77 (99) 97 Room Air I & O 11/07/18 07:00 Intake Total 600 ml Output Total 150 ml Balance 450 ml Capillary Refill : NONELess Than 3 Seconds General Appearance: No Apparent Distress, WD/WN HEENT: Pharynx Normal, Moist Mucous Membranes; No Pale Conjunctivae (L), No Pale Conjunctivae (R) Neck: Limited Range of Motion, Other ("sore all over") Respiratory: Chest Non Tender, Lungs Clear, Normal Breath Sounds, No Accessory Muscle Use, No Respiratory Distress Cardiovascular: Regular Rate, Rhythm, No Murmur Gastrointestinal: normal bowel sounds, soft, no organomegaly Extremity: No Calf Tenderness, No Pedal Edema Neurologic/Psychiatric: Alert, Oriented x3, No Motor/Sensory Deficits, Normal Mood/Affect, supervisor of operations II-XII Norm as Tested Skin: Normal Color, Warm/Dry Results Lab Laboratory Tests 11/06/18 18:15: White Blood Count 18.0H, Red Blood Count 4.42, Hemoglobin 13.5, Hematocrit 40, Mean Corpuscular Volume 91, Mean Corpuscular Hemoglobin 31, Mean Corpuscular Hemoglobin Concent 34, Red Cell Distribution Width 15.8H, Platelet Count 320, Mean Platelet Volume 9.7, Neutrophils (%) (Auto) 88H, Lymphocytes (%) (Auto) 6L, Monocytes (%) (Auto) 6, Eosinophils (%) (Auto) 0, Basophils (%) (Auto) 0, Neutrophils # (Auto) 15.8H, Lymphocytes # (Auto) 1.1, Monocytes # (Auto) 1.1H, Eosinophils # (Auto) 0.0, Basophils # (Auto) 0.0, Neutrophils % (Manual) 84, Lymphocytes % (Manual) 5, Monocytes % (Manual) 6, Eosinophils % (Manual) 0, Basophils % (Manual) 0, Band Neutrophils 5, Anisocytosis SLIGHT, Prothrombin Time 13.7, INR Comment 1.0, Sodium Level 134L, Potassium Level 5.2H, Chloride Level 104, Carbon Dioxide Level 23, Anion Gap 7, Blood Urea Nitrogen 29H, Creatinine 1.54H, Estimat Glomerular Filtration Rate 44, BUN/Creatinine Ratio 19, Glucose Level 210H, Calcium Level 9.8, Corrected Calcium 9.7, Total Bilirubin 0.5, Aspartate Amino Transf (AST/SGOT) 29, Alanine Aminotransferase (ALT/SGPT) 25, Alkaline Phosphatase 90, Total Protein 6.8, Albumin 4.1 11/06/18 23:51: Glucometer 209H 11/07/18 04:16: White Blood Count 13.0H, Red Blood Count 4.00L, Hemoglobin 11.9L, Hematocrit 36L , Mean Corpuscular Volume 91, Mean Corpuscular Hemoglobin 30, Mean Corpuscular Hemoglobin Concent 33, Red Cell Distribution Width 16.0H, Platelet Count 275, Mean Platelet Volume 10.0, Neutrophils (%) (Auto) 79H, Lymphocytes (%) (Auto) 11L, Monocytes (%) (Auto) 10, Eosinophils (%) (Auto) 0, Basophils (%) (Auto) 0, Neutrophils # (Auto) 10.2H, Lymphocytes # (Auto) 1.5, Monocytes # (Auto) 1.3H, E osinophils # (Auto) 0.0, Basophils # (Auto) 0.0, Sodium Level 134L, Potassium Level 4.7, Chloride Level 106, Carbon Dioxide Level 19L, Anion Gap 9, Blood Urea Nitrogen 26H, Creatinine 1.19, Estimat Glomerular Filtration Rate 60, BUN/Creatinine Ratio 22, Glucose Level 165H, Calcium Level 9.1 11/07/18 05:37: Glucometer 155H Assessment/Plan Assessment/Plan Assessment/Plan Trauma - Fall from Ladder Rib fracture Left 4,5,6 Pulmonary Contusion Will D/C pt home and encourage him to take deep breaths and use IS. Repeat CXR showed some atelectasis and minimal pleural effusion on the left. I recommend he have an EGD done as an outpt. He may also need a repeat CXR depending on how he does with symptoms and his breathing. All questions answered to his and his family's satisfaction. Clinical Quality Measures DVT/VTE Risk/Contraindication: Risk Factor Score Per Nursin RFS Level Per Nursing on Admit: 4+=Very High HIRAL VAZQUEZ DO Nov 07, 2018 10:25
[2018-11-07] MEDS ORDERED: ACHD5005 PO (10:27)
--- NOTE | 2018-11-07 10:29 | Discharge Inst-Surgical ---
Discharge Inst-Surgical Depart Medication/Instructions New, Converted or Re-Newed RX: RX Given to Pt/Family Patient Instructions Follow up Appt: Make appointment for 1 week. [phone] Instructions: No strenuous activity. May shower in 24 hours or take a bath. Use incentive spirometer at home as directed. No Smoking Skin/Wound Care: Heating pad to neck for soreness, can also try ice. Symptoms to Report: Appetite Changes, Extremity Discoloration, Numbness/Tingling, Swelling Increased, Bleeding Excessive, Eyesight Changes, Pain Increased, Urine Color Change, Constipation(Persistent), Fever over 101 degree F, Pain/Pressure in chest, Urinating Difficulty, Cough Up/Vomit Blood, Heart Beat Irreg/Pounding, Pain/Pressure in jaw, Cramps in feet or legs, Lightheadedness, Pain/Pressure in shoulder, Diarrhea(Persistent), Memory Changes Suddenly, Questions/Concerns, Weight gain consecutive days, Dizziness/Fainting, Nausea/Vomiting, Shortness of Breath, Weight gain over 2 pounds If questions or concerns contact your physician Or seek help at emergency department. Activity Activity as Tolerated: Yes Driving Instructions: No Driving/Refer to Dr. Hayden Discharge Diet: No Restrictions Diet After 24 Hours: Clear Liquid if Nauseous Symptoms to Report to Physicia: Shortness of Breath Skin/Wound Care Bathing Instructions: HIRAL Marroquin DO Nov 07, 2018 10:29
[2018-11-07 11:20] VITALS: BP 168/73
--- NOTE | 2018-11-07 11:20 | NUR ---
KELSI ANTONY demonstrates understanding of discharge instructions and accurately returns instructions upon questioning. Copy of Post-Discharge Instructions and Medication Discharge Instructions given to patient. KELSI ANTONY is able to manage continuing needs after discharge. Patients belongings returned to patient. Skin dry and intact; no breakdown noted. Patient discharged from [facility]- on November 06, 2018 at 1120. KELSI ANTONY left floor via , accompanied by [family and staff.
== END 2018-11-07 10:26 | disposition home or self-care (01) ==
LOC: EDUNIT# 17:52 → ER 17:54 → 4TH 19:40 → UNDOADMOB 19:40 → 4TH 20:35 → UNDODISOB 11-07 11:20
PROVIDERS: ADMIT Surgery; ATTEND Surgery
DX: S27.321A Contusion of lung, unilateral, initial encounter (principal); S22.42XA Multiple fractures of ribs, left side, initial encounter for closed fracture; W11.XXXA Fall on and from ladder, initial encounter; Y92.015 Private garage of single-family (private) house as the place of occurrence of the external cause; J98.11 Atelectasis; J90 Pleural effusion, not elsewhere classified; M25.512 Pain in left shoulder; M25.532 Pain in left wrist; M25.552 Pain in left hip; E78.00 Pure hypercholesterolemia, unspecified; I10 Essential (primary) hypertension; E11.40 Type 2 diabetes mellitus with diabetic neuropathy, unspecified; K21.9 Gastro-esophageal reflux disease without esophagitis; Z86.010 Personal history of colon polyps; E03.9 Hypothyroidism, unspecified; Z79.4 Long term (current) use of insulin; Z79.899 Other long term (current) drug therapy
CPT/HCPCS: 36415; 70450; 71046; 71260; 72125; 73030; 73110; 73120; 74177; 80048; 80053; 82962; 85007; 85025; 85027; 85610; 94640; 94664; 94760; 96374; 96376; G0378

== ENCOUNTER → 2019-04-07 | Outpatient (CLI) | payer MEDICARE, OTHER ==
[2019-04-07 10:53] LABS: BASOPHILS % (AUTO) 0 % (0-10); EOSINOPHILS % (AUTO) 0 % (0-10); HEMATOCRIT 42 % (40-54); LYMPHOCYTES # (AUTO) 2.2 X 10^3 (1.0-4.0); LYMPHOCYTES % (AUTO) 18 % (12-44); MEAN CORPUSCULAR HEMOGLOBIN 30 PG (25-34); MEAN CORPUSCULAR HGB CONC 33 G/DL (32-36); MEAN CORPUSCULAR VOLUME 91 FL (80-99); MEAN PLATELET VOLUME 9.4 FL (7.4-10.4); MONOCYTES # (AUTO) 0.8 X 10^3 (0.0-1.0); MONOCYTES % (AUTO) 6 % (0-12); NEUTROPHILS # (AUTO) 9.4 X 10^3 (1.8-7.8); NEUTROPHILS % (AUTO) 76 % (42-75); PLATELET COUNT 329 10^3/uL (130-400); RED CELL DISTRIBUTION WIDTH 15.3 % (10.0-14.5); WHITE BLOOD COUNT 12.4 10^3/uL (4.3-11.0)
[2019-04-07 11:14] LABS: ALBUMIN 4.3 GM/DL (3.2-4.5); BILIRUBIN,TOTAL 0.5 MG/DL (0.1-1.0); CALCIUM 9.9 MG/DL (8.5-10.1); CREATININE SERUM 1.48 MG/DL (0.60-1.30); POTASSIUM 4.3 MMOL/L (3.6-5.0); TOTAL PROTEIN 7.1 GM/DL (6.4-8.2)
== END ==
LOC: LAB 10:35
PROVIDERS: ATTEND Family Medicine
DX: E78.5 Hyperlipidemia, unspecified (principal); E11.9 Type 2 diabetes mellitus without complications; E03.9 Hypothyroidism, unspecified; I10 Essential (primary) hypertension
CPT/HCPCS: 36415; 80053; 80061; 83036; 84443; 85025

== ENCOUNTER → 2020-02-04 | Outpatient (CLI) | payer MEDICARE, OTHER ==
[2020-02-04 09:40] LABS: BASOPHILS % (AUTO) 1 % (0-10); EOSINOPHILS # (AUTO) 0.2 10^3/uL (0.0-0.3); EOSINOPHILS % (AUTO) 4 % (0-10); HEMATOCRIT 38 % (40-54); HEMOGLOBIN 12.2 g/dL (13.3-17.7); LYMPHOCYTES # (AUTO) 1.6 10^3/uL (1.0-4.0); LYMPHOCYTES % (AUTO) 31 % (12-44); MEAN CORPUSCULAR HEMOGLOBIN 30 pg (25-34); MEAN CORPUSCULAR HGB CONC 32 g/dL (32-36); MEAN CORPUSCULAR VOLUME 94 fL (80-99); MONOCYTES # (AUTO) 0.6 10^3/uL (0.0-1.0); MONOCYTES % (AUTO) 11 % (0-12); NEUTROPHILS # (AUTO) 2.7 10^3/uL (1.8-7.8); NEUTROPHILS % (AUTO) 53 % (42-75); PLATELET COUNT 278 10^3/uL (130-400); WHITE BLOOD COUNT 5.1 10^3/uL (4.3-11.0)
[2020-02-04 10:02] LABS: ALANINE AMINOTRANSFERASE 19 U/L (0-55); ALBUMIN 3.5 GM/DL (3.2-4.5); ALKALINE PHOSPHATASE 87 U/L (40-136); BILIRUBIN,TOTAL 0.5 MG/DL (0.1-1.0); BUN/CREATININE RATIO 16; CALCIUM 9.1 MG/DL (8.5-10.1); CARBON DIOXIDE 22 MMOL/L (21-32); CHLORIDE 108 MMOL/L (98-107); CHOLESTEROL 130 MG/DL (< 200); CREATININE SERUM 1.13 MG/DL (0.60-1.30); GFR ESTIMATED > 60; GLUCOSE 121 MG/DL (70-105); HDL CHOLESTEROL 53 MG/DL (40-60); POTASSIUM 4.7 MMOL/L (3.6-5.0); SODIUM 140 MMOL/L (135-145); TOTAL PROTEIN 6.1 GM/DL (6.4-8.2); TRIGLYCERIDES 59 MG/DL (<150); VLDL CHOLESTEROL 12 MG/DL (5-40)
[2020-02-04 10:24] LABS: FREE T4 (FREE THYROXINE) 1.45 NG/DL (0.70-1.48)
== END ==
LOC: LAB 09:11
PROVIDERS: ATTEND Family Medicine
DX: E11.9 Type 2 diabetes mellitus without complications (principal); E03.9 Hypothyroidism, unspecified; E78.5 Hyperlipidemia, unspecified; R53.83 Other fatigue
CPT/HCPCS: 36415; 80053; 80061; 83036; 84439; 84443; 85025

== ENCOUNTER → 2020-07-14 | Outpatient (CLI) | payer MEDICARE, OTHER ==
[~2020-07-14] MED LIST changes: +AMLO-251 PO; -AMLO10TA7 PO; +LISI40TA9 PO
[2020-07-14 09:39] LABS: POTASSIUM 4.4 MMOL/L (3.6-5.0)
[2020-07-14 09:40] LABS: CALCIUM 9.1 MG/DL (8.5-10.1)
[2020-07-14 09:41] LABS: TOTAL PROTEIN 6.9 GM/DL (6.4-8.2)
[2020-07-14 09:43] LABS: BILIRUBIN,TOTAL 0.6 MG/DL (0.1-1.0)
[2020-07-14 09:45] LABS: CREATININE SERUM 1.28 MG/DL (0.60-1.30)
[2020-07-14 10:09] LABS: FREE T4 (FREE THYROXINE) 1.03 NG/DL (0.70-1.48)
== END ==
LOC: LAB 09:08
PROVIDERS: ATTEND Family Medicine
DX: E03.9 Hypothyroidism, unspecified (principal); D64.9 Anemia, unspecified; E11.9 Type 2 diabetes mellitus without complications; E78.5 Hyperlipidemia, unspecified
CPT/HCPCS: 36415; 80053; 80061; 83036; 84439; 84443

== ENCOUNTER → 2022-02-20 | Outpatient (CLI) | payer MEDICARE, OTHER ==
--- NOTE | 2022-02-20 16:26 | Diagnostic Imaging Report ---
INDICATION: Pain to right tibia and fibula. Bump along the mid shaft. FINDINGS: 2 views. There are no fractures. No bone tumor is demonstrated. No periosteal reactive changes. No soft tissue densities noted. There is moderate arthritic change noted of the knee. IMPRESSION: No acute abnormalities. No findings to suggest tumors. Dictated by: Dictated on workstation # [id number]
== END ==
LOC: RAD 12:11
PROVIDERS: ATTEND Family Medicine
DX: M79.661 Pain in right lower leg (principal); W51.XXXA Accidental striking against or bumped into by another person, initial encounter
CPT/HCPCS: 73590

== ENCOUNTER → 2022-06-19 | Outpatient (CLI) | payer MEDICARE, OTHER ==
--- NOTE | 2022-06-19 10:42 | Diagnostic Imaging Report ---
INDICATION: PAIN IN RT HIP COMPARISON: None. FINDINGS: 2 views of the right hip were obtained and show no fractures, dislocations, or other acute bony abnormalities. Joint spaces are well maintained throughout. The soft tissues appear unremarkable. No unexpected radiopaque foreign bodies are identified. IMPRESSION: Unremarkable radiographic exam of the right hip. Dictated by: Dictated on workstation # [id number]
== END ==
LOC: ORTHO 10:00
PROVIDERS: ATTEND Orthopaedic Surgery
DX: M25.551 Pain in right hip (principal)
CPT/HCPCS: 73502; G0463; 99203

== ENCOUNTER 2023-03-21 14:57 | Emergency (ER) | payer MEDICARE, OTHER ==
[~2023-03-21] VITALS: Ht 167 cm; Wt 63.0 kg
[2023-03-21 15:00] VITALS: BP 189/90
--- NOTE | 2023-03-21 15:10 | ED Upper Extremity ---
General Chief Complaint: Laceration Stated Complaint: RT WRIST LACERATION Source: patient Exam Limitations: no limitations History of Present Illness Date Seen by Provider: Mar 21, 2023 Time Seen by Provider: 15:08 Initial Comments Patient is a 77-year-old male who presents ED with a laceration to his right lateral wrist. This occurred around 10:00 this morning. States he was grinding with a contact lens curve grinder when he swung it across to him and hit his right lateral wrist. This resulted in a 3 similar laceration. Did have some small amount of blood but bleeding continued. Not on blood thinners. Normal range of motion of the wrist. Noted a developing knot around the laceration. Denies any distal numbness and tingling. Up-to-date his tetanus within the past 5 years. Denies any distal numbness and tingling, or decreased range of motion. Allergies and Home Medications Allergies Coded Allergies: No Known Drug Allergies (Unverified , 02/17/17) Patient Home Medication List Home Medication List Reviewed: Yes Amlodipine Besylate (Amlodipine Besylate) 10 Mg Tablet, 10 MG PO DAILY, (Reported) Entered as Reported by: GENE TORRES on 02/17/17 1249 Gabapentin (Gabapentin) 600 Mg Tablet, 1,200 MG PO AM, (Reported) Entered as Reported by: GENE TORRES on 02/17/17 1249 Gabapentin (Gabapentin) 600 Mg Tablet, 1,200 MG PO HS, (Reported) Entered as Reported by: GENE TORRES on 02/17/17 1249 Hydrocodone Bit/Acetaminophen (Lortab 5 Mg Tablet) 1 Tab Tab, 1 TAB PO Q6H PRN for PAIN-MODERATE Prescribed by: HIRAL VAZQUEZ on 11/07/18 1027 Insulin Glargine,Hum.rec.anlog (Lantus) 100 Unit/1 Ml Vial, 7 UNIT SQ HS, (Reported) Entered as Reported by: GENE TORRES on 02/17/17 1249 Insulin Regular, Human (Novolin R) 100 Unit/1 Ml Vial, 5 UNIT IJ EVENING MEAL, (Reported) Entered as Reported by: GENE TORRES on 02/17/17 1249 Levothyroxine Sodium (Levothyroxine Sodium) 112 Mcg Tablet, 112 MCG PO DAILY, (Reported) Entered as Reported by: GENE TORRES on 02/17/171248 Lisinopril (Lisinopril) 40 Mg Tablet, 40 MG PO DAILY, (Reported) Entered as Reported by: GENE TORRES on 02/17/171248 Lovastatin (Lovastatin) 20 Mg Tablet, 20 MG PO HS, (Reported) Entered as Reported by: GENE TORRES on 02/17/17 124 Metformin HCl (Metformin HCl) 500 Mg Tablet, 500 MG PO BID, (Reported) Entered as Reported by: GENE TORRES on 02/17/171248 Pioglitazone HCl (Pioglitazone HCl) 45 Mg Tablet, 45 MG PO DAILY, (Reported) Entered as Reported by: GENE TORRES on 02/17/171248 Ranitidine HCl (Ranitidine HCl) 150 Mg Tablet, 150 MG PO BID, (Reported) Entered as Reported by: GENE TORRES on 02/17/171248 Review of Systems Constitutional: No chills, No diaphoresis, No malaise, No weakness EENTM: No hearing loss, No ear pain, No blurred vision, No double vision Respiratory: No cough, No dyspnea on exertion Cardiovascular: No chest pain Gastrointestinal: No abdominal pain, No diarrhea, No nausea, No vomiting Genitourinary: No decreased output, No discharge Musculoskeletal: No back pain; joint pain, joint swelling, muscle pain Skin: change in color All Other Systems Reviewed Negative Unless Noted: Yes Past Nnhaoqd-Ldseol-Kxjlln Hx Immunizations Up To Date Tetanus Booster (TDap): Less than 5yrs Seasonal Allergies Seasonal Allergies: No Past Medical History Surgeries: Yes (HEART CATH/NO INTERVENTIONS, CATARACTS, LT FOOT, BILAT CARPAL TUNNEL) Thyroidectomy Respiratory: No Cardiac: Yes High Cholesterol, Hypertension Neurological: Yes Neuropathy Reproductive Disorders: No Sexually Transmitted Disease: No HIV/AIDS: No Gastrointestinal: Yes Gastroesophageal Reflux, Polyps Musculoskeletal: Yes Arthritis Endocrine: Yes Diabetes, Insulin dep, Hypothyroidsim Loss of Vision: Bilateral Hearing Impairment: Hard of Hearing, Bilateral Hearing Aide Cancer: Yes (POSS THYROID? DIDN'T FOLLOW UP AFTER SURGERY) What Type of Treatment Did You: Surgical Intervention Psychosocial: No Integumentary: No Blood Disorders: No Adverse Reaction/Blood Tranf: No Family Medical History Arthritis 19 MOTHER, Onset:50's - 60 Cardiovascular disease 19 FATHER, Onset:60 years & older Diabetes mellitus 19 MOTHER, Onset:60 years & older G8 BROTHER, Onset:40's - 50 G8 SISTER, Onset:50's - 60 Kidney disease Myocardial infarction 19 FATHER, Onset:60 years & older Thyroid disease G8 SISTER, Onset:30's - 40 No Family History of: AIDS Abdominal aortic aneurysm Mcculloch's disease Alcoholism Alzheimer's disease Aphasia Asthma Cancer of mouth Cataracts Colon cancer Completed stroke Congenital disease Congenital heart disease Coronary thrombosis Cystic fibrosis Deafness or hearing loss Dementia Drug abuse Dysphasia Fibrocystic disease of breast Gastroenteritis Glaucoma Headache disorder Hypercholesterolemia Hypertension Infertility Neoplasm Not obtainable due to adoption Osteoporosis Parkinson's disease Prostate cancer Psychosocial problem Respiratory disorder Seizure disorder Severe allergy Tuberculosis Visual disorder CAD Over 55 Years Old, Diabetes Physical Exam Vital Signs Vital Signs - First Documented 03/21/23 15:00 Temp 36.3 Pulse 85 Resp 16 B/P (MAP) 189/90 (123) Pulse Ox 95 O2 Delivery Room Air Capillary Refill : Height, Weight, BMI Height: 5'7.00" Weight: 145lbs. 0.0oz. [id number]; 22.7 BMI Method:Stated General Appearance: WD/WN, no apparent distress HEENT: PERRL/EOMI, normal ENT inspection, TMs normal, pharynx normal Neck: non-tender, full range of motion, supple Cardiovascular: regular rate, rhythm, no edema, no gallop, no JVD Respiratory: chest non-tender, lungs clear, normal breath sounds, no respir atory distress, no accessory muscle use Gastrointestinal: normal bowel sounds, non tender, soft, no organomegaly Back: normal inspection, no CVA tenderness Shoulder: normal inspection, no evidence of injury Elbow/Forearm: normal inspection, non-tender Wrist: Yes pain, Yes soft tissue tenderness, Yes swelling Hand: normal inspection, non-tender, no evidence of injury, normal ROM, Right Neurologic/Tendon: normal sensation, normal motor functions Neurologic/Psychiatric: vp emerging media II-XII nml as tested, no motor/sensory deficits, alert, normal mood/affect, oriented x 3 Skin: other (2 cm laceration along the ulnar side. contusion noted. mild active bleeding.) Procedures/Interventions Wound Location: Upper Extremities Other Wound Location right wrist Wound Length (cm): 3 Wound's Depth, Shape: superficial, sub Q Wound Explored: clean Irrigated w/ Saline (ccs): 200 Betadine Prep?: Yes Anesthesia: 1% Lidocaine Volume Anesthetic (ccs): 5 Suture: Ethlion Suture Size: 4-0 Number of Sutures: 7 Layer Closure?: 1 Sterile Dressing Applied?: Yes Progress/Results/Core Measures Results/Orders My Orders Orders - OMAR AGARWAL Wrist, Right, 3 Views Or More (03/21/23 15:07) Lidocaine 1% Inj 20 Ml (Xylocaine 1% Inj (03/21/23 15:15) Medications Given in ED Current Medications Medications Dose Ordered Sig/Kay Route Start Time Stop Time Status Last Admin Dose Admin Lidocaine HCl 20 ml ONCE ONCE INJ 03/21/23 15:15 03/21/23 15:16 DC 03/21/23 15:15 20 ML Vital Signs/I&O 03/21/23 15:00 Temp 36.3 Pulse 85 Resp 16 B/P (MAP) 189/90 (123) Pulse Ox 95 O2 Delivery Room Air Departure Communication (PCP) Laceration 3 cm on the ulnar side of the right wrist. surrounding hematoma around the laceration. Very minimal bleeding. Not on blood thinners. Up-to-date on his tetanus within the past 5 years. X-ray was obtained which did not show any radiopaque foreign body or fracture. Seven 4-0 Ethilon sutures were placed here in the ED. Procedure document note. Normal active range of motion of the right wrist., NROM of the digits- no tendon or muscular involvement. Bleeding controlled. Gibran wrap was applied. Discussed with patient that may take some time for the hematoma to breakdown. Continue with Gibran wrap compression ice. Remove sutures in 10 days. If increased redness or swelling to return back to ED. Tylenol or ibuprofen for pain. Impression Primary Impression: Wrist laceration Disposition: 01 HOME, SELF-CARE Condition: Stable Departure-Patient Inst. Decision time for Depature: 15:18 Referrals: SISSY RASHID MD (PCP/Family) Primary Care Physician Patient Instructions: Laceration Repair With Stitches ED Add. Discharge Instructions: Remove sutures in in 10 days. Keep the area covered. Ice to help with swelling. All discharge instructions reviewed with patient and/or family. Voiced understanding. OMAR AGARWAL Mar 21, 2023 15:10
[2023-03-21] MEDS ORDERED: LIDOCAINE 1% INJ 20 ML VIAL INJ ONE (15:15)
--- NOTE | 2023-03-21 15:39 | Diagnostic Imaging Report ---
INDICATION: Injury to right wrist. TECHNIQUE: AP, oblique, and lateral views of the right wrist are obtained. FINDINGS: There is advanced degenerative change of the radiocarpal joint with likely chronic widening of the scapholunate space and chronic-appearing deformity of the scaphoid. There is also an old fracture deformity of the first metacarpal. There is no acute fracture. There is soft tissue swelling. There are vascular calcifications. There is no radiopaque foreign body. IMPRESSION: Extensive chronic changes of the right wrist as above with no acute bony abnormality. There is no radiopaque foreign body. Dictated by: Dictated on workstation # [id number]
== END 2023-03-21 15:49 | disposition home or self-care (01) ==
LOC: EDUNIT# 14:57 → ER 14:59
DX: S61.511A Laceration without foreign body of right wrist, initial encounter (principal); E11.9 Type 2 diabetes mellitus without complications; Z79.4 Long term (current) use of insulin; W29.0XXA Contact with powered kitchen appliance, initial encounter
CPT/HCPCS: 73110

== ENCOUNTER 2023-03-31 11:27 | Emergency (ER) | payer MEDICARE, OTHER ==
[2023-03-31 11:48] VITALS: BP 183/70
== END 2023-03-31 11:48 | disposition home or self-care (01) ==
LOC: EDUNIT# 11:27 → ER 11:30
DX: Z48.02 Encounter for removal of sutures (principal)